=== PATIENT | male | born 1965 | race Caucasian/White ===

== ENCOUNTER 2021-08-16 23:52 | Emergency (ER) | payer MEDICARE, MEDICAID ==
--- NOTE | 2021-08-16 23:59 | ED Physician Documentation ---
PD HPI MALE - Stated complaint Stated Complaint: MALE - History obtained from History obtained from: Patient - History of Present Illness Timing - onset: Today (this evening) Timing - details: Gradual onset, Constant Pain level now: 10 Associated symptoms: Unable to urinate Similar symptoms before: Has not had sx before Recently seen: Not recently seen - Additional information Additional information: c/o unable to urinate for past 9 hours with increasing suprapubic fullness and pressure with urge to urinate. Denies h/o similar problem. Review of Systems Constitutional: denies: Fever GI: reports: Abdominal Pain (limited to suprapubic region). denies: Nausea, Vomiting : reports: Unable to Void PD PAST MEDICAL HISTORY - Past Medical History Past Medical History: Yes - Present Medications Home Medications: Ambulatory Orders Medication Instructions Recorded Confirmed Acetaminophen [Tylenol] 325 mg PO QID PRN 08/17/21 08/17/21 Albuterol 2.5 mg IN DAILY 08/17/21 08/17/21 Aspirin EC [Ecotrin] 325 mg PO DAILY 08/17/21 08/17/21 Atenolol [Tenormin] 50 mg PO DAILY 08/17/21 08/17/21 Budesonide/Formoterol Fumarate 2 puffs IH BID 08/17/21 08/17/21 [Symbicort 160-4.5 Mcg Inhaler] Cholecalciferol [Vitamin D3] 1 cap PO DAILY 08/17/21 08/17/21 Ipratropium/Albuterol [Duoneb] 3 ml IH Q4HR PRN 08/17/21 08/17/21 Morphine ER [Morphine Sulfate ER] 15 mg PO TID 08/17/21 08/17/21 Quetiapine Fumarate [Seroquel Xr] 100 mg PO DAILY 08/17/21 08/17/21 Rivaroxaban [Xarelto] 20 mg PO DAILY 08/17/21 08/17/21 Sertraline HCl 100 mg PO DAILY 08/17/21 08/17/21 allopurinoL [Zyloprim] 100 mg PO DAILY 08/17/21 08/17/21 fentaNYL 100 MCG PATCH [Duragesic 125 mcg ID PRN PRN 08/17/21 08/17/21 100mcg patch] predniSONE [Deltasone] 10 mg PO DAILY 08/17/21 08/17/21 tiZANidine [Zanaflex] 4 mg PO BID 08/17/21 08/17/21 - Allergies Allergies/Adverse Reactions: Allergies Allergy/AdvReac Type Severity Reaction Status Date / Time duloxetine [From Cymbalta] Allergy Unknown Verified 08/17/21 00:11 gabapentin Allergy Unknown Verified 08/17/21 00:12 pregabalin [From Lyrica] Allergy Unknown Verified 08/17/21 00:12 PD ED PE NORMAL - Vitals Vital signs reviewed: Yes - General General: Alert and oriented X 3, Well developed/nourished, Other (obvious painful distress) - Respiratory Respiratory: No respiratory distress PD ED PE EXPANDED - Respiratory Respiratory: Decreased breath sounds Results - Vitals Vitals: Vital Signs - 24 hr 08/17/21 08/17/21 08/17/21 00:00 00:30 00:43 Temperature 35.8 C L Heart Rate 119 H 101 H 102 H Respiratory 28 H 12 24 Rate Blood Pressure 147/91 H 147/97 H O2 Saturation 88 L 99 08/17/21 00:50 Temperature 36.3 C L Heart Rate 101 H Respiratory 11 L Rate Blood Pressure 139/93 H O2 Saturation 88 L Oxygen O2 Source Nasal cannula Oxygen Flow Rate 8 - Labs Labs: Laboratory Tests 08/17/21 00:11 Urine Color YELLOW Urine Clarity CLEAR Urine pH 7.0 Ur Specific [place] 1.010 Urine Protein NEGATIVE Urine Glucose (UA) NEGATIVE Urine Ketones NEGATIVE Urine Occult Blood NEGATIVE Urine Nitrite NEGATIVE Urine Bilirubin NEGATIVE Urine Urobilinogen 0.2 (NORMAL) Ur Leukocyte Esterase NEGATIVE Ur Microscopic Review NOT INDICATED Urine Culture Comments NOT INDICATED PD MEDICAL DECISION MAKING - ED course Complexity details: reviewed results, re-evaluated patient, considered differential, d/w patient ED course: bladder scan by ED RN shows >999 ml. Morrison catheter placed by ED RN with return of clear , yellow urine and resolution of symptoms. A total of 2000cc output during ED stay; morrison was clamped for 15 minutes after 1800 cc output then unclamped (and another 200cc output). Patient's pulse ox is 88% on 8 liters NC; patient says this is his baseline (he specifically says that he uses 8 liters oxygen NC and his pulse ox is 88-90%). He is in no respiratory distress and says he feels that he is at his baseline respiratory status. He is agreeable to a duoneb prior to d/c, which I recommended, as his pulse ox was dropping to 83% on 8 liters at times during stay. Patient is discharged in NAD. Departure - Departure Disposition: 01 Home, Self Care Clinical Impression: Urinary retention Condition: Good Instructions: ED Catheter Care Shantanu, ED Retention Urinary Male Follow-Up: FELA WEEMS DO [Primary Care Provider] - Comments: Follow up with either a urologist or your primary care provider this week; ideally you would follow up with a urologist, but I recommend you follow up with whomever can see you the soonest. Discharge Date/Time: 08/17/21 01:06
[2021-08-17 00:22] LABS: BILIRUBIN,URINE NEGATIVE (NEGATIVE); GLUCOSE, URINE (UA) NEGATIVE (NEGATIVE); KETONES,URINE (UA) NEGATIVE (NEGATIVE); LEUKOCYTE ESTERASE, URINE NEGATIVE (NEGATIVE); NITRITE,URINE NEGATIVE (NEGATIVE); OCCULT BLOOD,URINE NEGATIVE (NEGATIVE); PROTEIN,URINE NEGATIVE (NEGATIVE); UROBILINOGEN,URINE 0.2 (NORMAL) E.U./dL (NORMAL)
[2021-08-17 00:24] LABS: CLARITY,URINE CLEAR (CLEAR)
[2021-08-17] MEDS ORDERED: IPRATROPIUM/ALBUTEROL 3 ML NEB INH STA (00:33)
[2021-08-17 00:52] VITALS: BP 139/93
== END 2021-08-17 01:06 | disposition home or self-care (01) ==
LOC: ED 23:52
DX: R33.9 Retention of urine, unspecified (principal); R09.02 Hypoxemia
CPT/HCPCS: 51702; 51798; 81001; 81003; 87086; 94640; 94664; 99282; 99285